=== PATIENT | male | born 2000 | race Two or more races ===

== ENCOUNTER 2024-10-27 17:14 | Emergency (ER) | payer MEDICAID, SELFPAY ==
[2024-10-27 17:22] VITALS: BP 151/82; PULSE 89; RESP 17; TEMP 36.4; O2SAT 100; BMI 26.9
--- NOTE | 2024-10-27 17:22 | PD.EDEAR ---
ED Ear RME/HPI General Chief complaint: Ear Stated complaint: LEFT EAR PAIN Time Seen by Provider: 10/27/24 17:17 Arrival date/time: 10/27/24 17:14 Limitations: no limitations RME / HPI RME / HPI Narrative: 24-year-old male with no past medical or surgical history is here today with a 2-hour history of left-sided ear pain. Denies any fevers, chills, runny nose, or congestion. Has no sore throat. Denies any ear drainage. He states his was noted after he was out swimming today and jumped off a boat. Denies any trauma. He has no dizziness or vertigo. He has no other acute complaints. Related Data Previous Rx's ?Medication ?Instructions ?Recorded amoxicillin 875 mg-potassium 1 tab PO BID #14 tabs 10/27/24 clavulanate 125 mg tablet Allergies Allergy/AdvReac Type Severity Reaction Status Date / Time NKA* Allergy Uncoded 10/27/24 17:16 Review of Systems Review of Systems Systems Reviewed: All systems reviewed, normal except as documented ED Exam General Limitations: Present no limitations General appearance: Present alert and in no apparent distress Head Head exam: Present atraumatic Eye Eye exam: Present normal appearance, PERRL and EOMI ENT ENT exam: Present normal exam, normal oropharynx, mucous membranes moist and other (Right ear canal is patent, right tympanic membrane is pearly moraes. Left ear canal is patent, left tympanic membrane is erythematous, bulging, and effusion is present.) Neck Neck exam: Present normal inspection, full ROM and trachea midline Chest Chest inspection: Present normal inspection and symmetric chest wall rise Respiratory Respiratory exam: Present normal lung sounds bilaterally Cardiovascular Cardiovascular exam: Present regular rate, normal rhythm and normal heart sounds Abdominal Exam Abdominal exam: Present soft and normal bowel sounds Extremities Exam Extremities exam: Present normal inspection and full ROM Back Exam Back exam: Present normal inspection and full ROM Neurological Exam Neurological exam: Present alert, oriented X3 and CN II-XII intact Psychiatric Psychiatric exam: Present normal affect and normal mood Skin Skin exam: Present warm, dry, intact and normal color Course Quality Measures none Orders Category Date Time Status Amoxicillin/Pot Clav 875 [Augmentin 875] Med 10/27/24 17:21 Once 1 tab PO X1 ONE Ibuprofen Tab [Motrin Tab] Med 10/27/24 17:21 Once 600 mg PO X1 ONE Ear MDM Narrative MDM Narrative:: 24-year-old male with no past medical or surgical history is here today with a 2-hour history of left-sided ear pain. Denies any fevers, chills, runny nose, or congestion. Has no sore throat. Denies any ear drainage. He states his was noted after he was out swimming today and jumped off a boat. Denies any trauma. He has no dizziness or vertigo. He has no other acute complaints. Patient is nontoxic appearing. Vital signs are stable. Exam is consistent with otitis media of the left ear. Patient was given ibuprofen and Augmentin here. He will continue this at home. He has no primary care provider. He is advised to obtain 1. Return as needed for any worsening or emergent changes. Patient data External records reviewed:: None Clinical information provided by:: patient Social determinants that could affect healthcare access:: none Patient has the following chronic illnesses:: n/a How is presenting disease/condition affected by chronic disease/condition?: no chronic disease Evaluation data The following diagnostics were reviewed and interpreted by me:: other (specify) (n/a) Lab and/or radiology exams considered but not ordered:: n/a Interpretation Summary: n/a Medications / Prescriptions Medications or Prescriptions considered but not ordered:: n/a Medication administrations:: Medication Administration History Amoxicillin/Clavulanate Potassium (Amoxicillin/Pot Clav 875 Tablet) 1 tab PO X1 ONE Stop: 10/27/24 17:22 Ibuprofen (Ibuprofen Tab 600 Mg Tablet) 600 mg PO X1 ONE Stop: 10/27/24 17:22 See above Consultations Consultation(s) initiated? (list below): No Diagnosis Ear Differential Diagnosis: otitis externa, otitis media, foreign body in ear, ruptured TM and cerumen impaction Most likely diagnosis given after review of the tests above:: n/a Admission Indicated Admission indicated?: not indicated Admission Request Was there a request for admission?: No Disposition Plan Disposition Plan: Discharge Discharge Attestation Discharge Attestation: The patient and all family members were given an opportunity to ask questions and understood the discharge instructions. Discharge instructions specifically effects, indications for sooner follow up or return to the emergency department, and the expected course of current diagnosis. Patient condition: Stable Discharge Plan Plan Patient Disposition: HOME (Self Care) Patient condition on transfer: Stable Prescriptions/Referrals Prescriptions/Med Rec: New amoxicillin-pot clavulanate 875-125 mg tablet 1 tab PO BID Qty: 14 0RF Problem List Clinical Impression: Otitis media Patient/Caregiver Discharge Instructions Education Materials: ED Otitis Media Antibiotic ... Additional Instructions: Use the provided antibiotic as prescribed. Use ibuprofen and Tylenol as needed for comfort. Return as needed for any worsening or emergent changes. Print Language: Greek Stand Alone Forms: [facility] Award Info., Patient Portal Info Letter
[2024-10-27] MEDS: AMOXICILLIN/POT CLAV 875 TABLET 1 TAB PO (17:49)
[2024-10-27] MEDS: IBUPROFEN TAB 600 MG TABLET PO (17:49)
== END 2024-10-27 17:56 | disposition home or self-care (01) ==
LOC: SERX 17:54
PROVIDERS: Emergency Provider Family Medicine; PCP Family Medicine
DX: H66.92 Otitis media, unspecified, left ear (principal)
CPT/HCPCS: 99282; A9270